=== PATIENT | female | born 1950 | race Caucasian/White ===

== ENCOUNTER 2017-09-07 14:13 | Outpatient (CLI) | payer MEDICARE ==
--- NOTE | 2017-09-07 15:53 | MRI ---
MRI OF THE RIGHT KNEE WIHTOUT CONTRAST: INDICATION: Right knee pain, concern for lateral meniscal tear after a fall in April of 2017. FINDINGS: Thee is a horizontally oriented tear involving the anterior horn, body, and posterior horn of the lat eral meniscus. There is a horizontally oriented oblique tear involving the body of the medial menisc us with a displaced flap seen projecting into the inferior medial gutter on image 16 of series 6. Th ere is a horizontally oriented tear component extending into posterior junction and posterior horn wi th associated parameniscal cyst seen adjacent to the posterior root on image 15 of series 7 measuring 3.2 x 0.8 cm. The MCL, ACL, PCL, and LCLC are intact. The extensor mechanism is intact. There is moderate to severe chondrosis involving the mediofemoral tibial and patellofemoral compartme nts with associated marginal osteophytes consistent with moderate to severe osteoarthrosis. There is a small semimembranous medial gastrocnemius popliteal cyst. The IT band and popliteus appear within normal limits. IMPRESSION: 1. Moderate to severe osteoarthrosis of the right knee. 2. Medial and lateral meniscal tears. There is a parameniscal cyst seen adjacent to the posterior r oot of the medial meniscus measuring 3.2 x 0.8 cm. POS: [facility]
== END 2017-09-07 14:14 | disposition home or self-care (01) ==
LOC: SCSMRI 14:13
PROVIDERS: ATTEND Orthopaedic Surgery
DX: M25.561 Pain in right knee (principal); M17.11 Unilateral primary osteoarthritis, right knee; S83.281A Other tear of lateral meniscus, current injury, right knee, initial encounter; S83.241A Other tear of medial meniscus, current injury, right knee, initial encounter; M25.861 Other specified joint disorders, right knee

== ENCOUNTER 2018-01-28 12:13 | Outpatient (CLI) | payer MEDICARE ==
[2018-01-28 13:55] LABS: Bilirubin Negative (Negative); Blood, Urine Negative (Negative); Clarity CLEAR (Clear); Glucose, Urine (Dipstick) Negative (Negative); Leukocyte Small (Negative); Nitrite Negative (Negative); Protein, Urine (Dipstick) Negative (Neg-Trace); Specific Gravity, Urine 1.006 (1.002-1.036); Urobilinogen 0.2 mg/dL (0.2-1.0); pH, Urine 7.5 (5.0-9.0)
[2018-01-28 14:03] LABS: Bacteria/HPF None Seen HPF (None Seen); Hyaline Casts/LPF 0-3 HYALINE CAST LPF (0-3 Hyaline); RBC/HPF 0-3 HPF (0-3); Squamous Epithelial None Seen HPF (0-3); WBC/HPF 0-3 HPF (0-3)
== END 2018-01-28 12:14 | disposition home or self-care (01) ==
LOC: LABBT 12:13
PROVIDERS: ATTEND Orthopaedic Surgery
DX: Z01.818 Encounter for other preprocedural examination (principal); M17.11 Unilateral primary osteoarthritis, right knee
CPT/HCPCS: 81001; 87081; 93005; 93010

== ENCOUNTER 2018-02-02 09:50 | Outpatient (CLI) | payer MEDICARE ==
[2018-02-02 10:56] LABS: #Basophils 0.1 thou/uL (0.0-0.2); #Eosinphils 0.1 thou/uL (0.0-0.7); #Lymphocytes 1.6 thou/uL (1.20-3.40); #Monocytes 0.4 thou/uL (0.11-0.59); #Neutrophils 3.7 thou/uL (1.40-6.50); %Basophils 1.6 % (0.0-1.0); %Eosinophils 1.5 % (0.0-10.0); %Lymphocytes 26.7 % (21.0-51.0); %Monocytes 7.4 % (0.0-10.0); %Neutrophils 62.9 % (42.0-75.0); Hemoglobin 13.2 g/dL (12.0-16.0); Mean Corpuscular HGB CONC 32.4 g/dL (32.0-36.0); Mean Corpuscular Hemoglobin 31.3 pg (27.0-31.0); Mean Corpuscular Volume 96.6 fL (78.0-98.0); Mean Platelet Volume 6.6 fL (7.4-10.4); Platelet Count 314 thou/uL (130-400); RBC Distribution Width 11.9 % (11.5-14.5); Red Blood Cell (RBC) Count 4.21 mill/uL (4.20-5.40); White Blood Cell (WBC) Count 5.9 thou/uL (4.8-10.8)
[2018-02-02 11:11] LABS: Prothrombin Time 13.5 SEC (12.0-14.7)
[2018-02-02 11:12] LABS: Anion Gap 11 mmol/L (10-20); BUN (Urea Nitrogen) 15 mg/dL (9.8-20.1); Calc. Creatinine Clearance 0 mL/min (70-130); Calcium 9.5 mg/dL (7.8-10.44); Carbon Dioxide 30 mmol/L (23-31); Chloride 103 mmol/L (98-107); Estimated GFR-MDRD 73; Glucose 62 mg/dL (80-115); Sodium 140 mmol/L (136-145)
== END 2018-02-02 09:51 | disposition home or self-care (01) ==
LOC: LABBT 09:50
PROVIDERS: ATTEND Orthopaedic Surgery
DX: Z01.812 Encounter for preprocedural laboratory examination (principal); M17.11 Unilateral primary osteoarthritis, right knee
CPT/HCPCS: 80048; 85025; 85610; 86850; 86900; 86901

== ENCOUNTER 2018-02-08 08:42 | Day surgery (SDC) | payer MEDICARE ==
[2018-01-28 12:31] VITALS: BMI 21.1
[2018-02-08] MEDS ORDERED: CEFAZOLIN 2 GM/50 ML BAG ONE (09:40)
[2018-02-08] MEDS ORDERED: Sodium Chloride 0.9% 100 ML ONE (09:40)
[2018-02-08] MEDS ORDERED: Tranexamic Acid 1,000 MG/10 ML VIAL ONE ×2 (09:40→14:57)
[2018-02-08] MEDS ORDERED: Fentanyl 100 MCG/2 ML VIAL ONE ×2 (11:06→14:57)
[2018-02-08] MEDS ORDERED: Midazolam HCl 2 mg/2 ml Vial ONE (11:06)
[2018-02-08] MEDS ORDERED: Lidocaine 1% (PF) 30 ML VIAL ONE (11:07)
[2018-02-08] MEDS ORDERED: traMADol HCl 50 MG TAB PO PRN ×5 (11:52→14:27)
[2018-02-08] MEDS ORDERED: Ondansetron PF 4 MG/2 ML Vial IVP PRN ×2 (11:52→12:36)
[2018-02-08] MEDS ORDERED: HYDROcodone/Acetaminophen 10/325 mg Tablet PO PRN ×4 (11:52→14:27)
[2018-02-08] MEDS ORDERED: Zolpidem Tartrate 5 MG TAB PO PRN ×3 (11:52→14:27)
[2018-02-08] MEDS ORDERED: Promethazine HCl 25 MG/ML VIAL IM PRN ×4 (11:52→14:27)
[2018-02-08] MEDS ORDERED: Fentanyl 100 MCG/2 ML VIAL IV PRN (11:53)
[2018-02-08] MEDS ORDERED: Ketorolac Tromethamine 30 MG/ML VIAL IVP SCH (12:00)
[2018-02-08] MEDS ORDERED: Ropivacaine 0.2% HCl/PF (40 MG/20 ML VIAL) ONE (12:16)
[2018-02-08] MEDS ORDERED: Ropivacaine 0.5% HCl/PF (150 MG/30 ML VIAL) ONE (12:16)
[2018-02-08] MEDS ORDERED: Acetaminophen 325 MG TAB PO PRN (12:36)
[2018-02-08] MEDS ORDERED: diphenhydrAMINE 25 MG CAP PO PRN (12:36)
[2018-02-08] MEDS ORDERED: Tranexamic Acid 1,000 MG in Sodium Chloride 0.9% 100 ML IVPB SCH (12:45)
[2018-02-08] MEDS ORDERED: Bupivacaine PF 0.5% 30 ML VIAL ONE (13:00)
[2018-02-08] MEDS ORDERED: Ondansetron PF 4 MG/2 ML Vial ONE (13:26)
[2018-02-08] MEDS ORDERED: PROPOFOL 200 MG/20 ML VIAL ONE (13:26)
[2018-02-08] MEDS ORDERED: Lidocaine 1% PF 5 ML VIAL ONE (13:26)
[2018-02-08] MEDS ORDERED: ePHEDrine/0.9% NaCl/PF SYRINGE 50 mg/10 ml ONE (13:26)
[2018-02-08] MEDS ORDERED: Ondansetron HCl/PF 4 MG/2 ML Vial IVP PRN (14:10)
[2018-02-08] MEDS ORDERED: Promethazine HCl 25 MG/ML VIAL SLOW IVP PRN (14:10)
[2018-02-08] MEDS ORDERED: Ropivacaine HCl/PF 250 ML in Premix Bag 1 BAG NERVE BLCK SCH (14:27)
[2018-02-08] MEDS ORDERED: Fentanyl 100 MCG/2 ML VIAL SLOW IVP PRN (14:31)
--- NOTE | 2018-02-08 15:26 | OP ---
DATE OF PROCEDURE: 02/08/2018 PREOPERATIVE DIAGNOSIS: Right knee osteoarthrosis. POSTOPERATIVE DIAGNOSIS: Right knee osteoarthrosis. PROCEDURE PERFORMED: Right total knee replacement using Pontis pinless navigation. SURGEON: Fortino Smith M.D. MINING ENGINEERING TECHNOLOGIST: Chavo Colby PA-C. BLOOD LOSS: Minimal. COMPLICATIONS: None. CONDITION: She did go to recovery room in stable condition. ANESTHESIA: She had a preoperative block as well as general anesthetic. IMPLANTS: To the right knee is Triathlon total knee system, the femur was size 5 cruciate retaining. We used a size 3 universal tibial baseplate, we used 3 x 9 mm CS X3 tibial bearing and a symmetric 27 x 8 X3 patella. DISPOSITION: She did go to recovery room in stable condition. INDICATIONS: This is an active 67-year-old female who has failed nonoperative treatment for knee art hritis and at this time wished to have her knee replaced. PROCEDURE IN DETAIL: After all appropriate consent forms were explained and signed, the patient was t aken back to the Operating Room and at this time was given general anesthetic. Once the level of anes thesia was appropriate, a well-padded tourniquet was placed on the right leg and the leg was then pre pped and draped in standard surgical fashion. The limb was exsanguinated and tourniquet taken up to 3 00 mmHg. Midline incision was made with a 10 blade down through the skin and subcutaneous tissue. Bov ie electrocautery was used to coagulate any brisk venous bleeding. A new blade was used to make a med ial parapatellar arthrotomy. Small subperiosteal release was performed medially and excess fat pad wa s removed. The knee was flexed up to gain access to the femur. The femur was navigated and distal fem oral resection was made. Epicondylar access was used to align our sizing jig and this was pinned in p lace. We sized our femur to be a size 5 cruciate retaining 4:1 cutting block was applied and pinned. Anterior and posterior chamfer cuts were then made. We navigated out our proximal tibia and made our proximal tibial resection. Spreaders were used to remove any posterior osteophytes off the back of th e femur as well as remaining meniscal tissue. A long alignment omer was then used to achieve correct r otation of our tibial baseplate and a size 3 universal tibial baseplate was chosen. This was pinned i n place. We trialed the polyethylene and a 3 x 9 mm CS X3 tibial bearing polyethylene gave us full ex tension and good stability throughout range of motion. Two towel clips and a saw were used to cut our patella. Three lug nuts were drilled and symmetric 27 x 8 X3 patella was trialed which sat nicely in the trochlear groove. We then drilled our femur and punched our tibia. All components were removed. The knee was thoroughly irrigated and dried. Cement was mixed into the cement gun on the back table. Components were then placed. The knee was held out in full extension until the cement had dried. All excess bone cement was removed. Multiple #2 Vicryl stitches as well as a Quill was used to close our extensor mechanism. 0 Quill followed by a running Monoderm was then used to close the skin. Surgicel glue was then used on the skin. Once this had dried, soft tissue dressing was applied to the limb, t ourniquet was let down, and the toes pinked up nicely. The patient was then awakened and taken to [facility] Recovery Room in stable condition. All counts were correct at the end of the case. The patient did receive preoperative IV antibiotics. The patient was injected with Exparel for postoperative pain re lief.
[2018-02-08] MEDS: Sodium Chloride 0.9% 1,000 ML IV SCH ×2 (16:21→23:12)
[2018-02-08] MEDS: Ketorolac Tromethamine 30 MG/ML VIAL IVP SCH ×2 (17:41→23:15)
[2018-02-08] MEDS: CEFAZOLIN 2 GM/50 ML BAG IVPB SCH (17:43)
[2018-02-08] MEDS: Senokot S 8.6-50 MG TAB PO SCH (20:16)
[2018-02-08] MEDS: Aspirin 81 mg Enteric Coated Tablet PO SCH (20:16)
[2018-02-08] MEDS: Amitriptyline HCl 25 MG TAB PO SCH (20:16)
[2018-02-08] MEDS: Ferrous Gluconate 324 MG TAB PO SCH (20:16)
[2018-02-08] MEDS ORDERED: Non-Formulary Item 1 EACH (Multivitamin [Daily Multiple Vitamin] 1 EACH) PO SCH (21:00)
[2018-02-08] MEDS: Ondansetron PF 4 MG/2 ML Vial IVP PRN (21:33)
[2018-02-08] MEDS ORDERED: Vancomycin HCl 1 GM in Premix Bag 1 BAG IVPB SCH (22:00)
[2018-02-09] MEDS: CEFAZOLIN 2 GM/50 ML BAG IVPB SCH (02:45)
[2018-02-09] MEDS: Ketorolac Tromethamine 30 MG/ML VIAL IVP SCH ×4 (05:44→23:43)
[2018-02-09 06:42] LABS: Hemoglobin 11.1 g/dL (12.0-16.0); Mean Corpuscular HGB CONC 33.3 g/dL (32.0-36.0); Mean Corpuscular Hemoglobin 31.9 pg (27.0-31.0); Mean Corpuscular Volume 95.8 fL (78.0-98.0); Mean Platelet Volume 6.9 fL (7.4-10.4); Platelet Count 262 thou/uL (130-400); RBC Distribution Width 11.8 % (11.5-14.5); Red Blood Cell (RBC) Count 3.47 mill/uL (4.20-5.40); White Blood Cell (WBC) Count 10.4 thou/uL (4.8-10.8)
[2018-02-09] MEDS: Ferrous Gluconate 324 MG TAB PO SCH ×2 (08:34→21:19)
[2018-02-09] MEDS: Fish Oil 1,000 MG CAP PO SCH (08:34)
[2018-02-09] MEDS: Aspirin 81 mg Enteric Coated Tablet PO SCH ×2 (08:34→21:18)
[2018-02-09] MEDS: Multivitamin W/ Minerals 1 TAB PO SCH (08:35)
[2018-02-09] MEDS: Senokot S 8.6-50 MG TAB PO SCH ×2 (08:35→21:18)
--- NOTE | 2018-02-09 08:44 | CON ---
DATE OF CONSULTATION: 02/09/2018 ATTENDING PHYSICIAN: Dr. Fortino Smith. REASON FOR CONSULTATION: Postop day #1, right total knee replacement. HISTORY OF PRESENT ILLNESS: This is a 68-year-old female patient who has failed outpatient therapy f or persistent knee pain. She is seeing Dr. Smith for follow up and has not had improvement as an outp atient and underwent total knee replacement yesterday. She has done well, has had no postoperative i ssues except for some nausea which is resolved. She has not started therapy until today, but has no complaints at this time. Knee pain is managed with anesthesia and analgesia. Denies chest pain, agustin rtness of breath or palpitations. PAST MEDICAL HISTORY: Hyperlipidemia, osteoarthritis, degenerative joint disease, history of migrain e. MEDICATIONS: Include amitriptyline 25 mg at bedtime, fish oil 1000 mg b.i.d., Caltrate D daily. ALLERGIES: None known. PAST SURGICAL HISTORY: Childbirth in 1981. SOCIAL HISTORY: She is . No smoking. Rare alcohol. No drugs. Retired teacher. Occasional coffee use. FAMILY HISTORY: Mother and father . REVIEW OF SYSTEMS: As per the history of present illness. Denies any recent fevers, chills or recen t illness. HEENT: Denies headache, visual or hearing changes. Cardiac: Denies chest pain, shortne ss of breath. Pulmonary: Denies cough or hemoptysis. Gastrointestinal: Some nausea, no vomiting o r diarrhea. Genitourinary: No history of dysuria or hematuria. Neurologic: No weakness, seizures, syncope. Musculoskeletal: Positive for right knee pain. PHYSICAL EXAMINATION: VITAL SIGNS: Temperature 98.6, pulse is 79, respirations 14, blood pressure 95/58, pulse ox 94%-96% on room air. GENERAL: She is awake and alert, in no acute distress. Speech is clear. HEENT: Mucosa is moist. NECK: Supple. HEART: Regular rate and rhythm. LUNGS: Clear bilaterally. ABDOMEN: Soft. EXTREMITIES: Right knee with dressing in place. Decreased range of motion. No edema bilaterally. LABORATORY DATA: White blood cell count 10,400, hemoglobin and hematocrit are 11.1 and 33.2, platele ts of 262. Preop labs were reviewed. ASSESSMENT AND PLAN: This is a 68-year-old female patient with a right knee arthritis status post ri ght total knee replacement, doing well. 1. Status post right knee replacement, postoperative care as per Orthopedics. 2. Hyperlipidemia. We will continue her medications. 3. Chronic sleep disturbance and migraine headache. We will continue amitriptyline for prevention. 4. Gastrointestinal protection. Her diet has been good. We will continue to monitor closely. 5. Deep venous thrombosis prophylaxis with her early ambulation as well as aspirin. We will continue to follow.
[2018-02-09] MEDS: Ondansetron PF 4 MG/2 ML Vial IVP PRN (09:22)
[2018-02-09] MEDS: Sodium Chloride 0.9% 1,000 ML IV SCH ×2 (13:09→18:18)
[2018-02-09] MEDS: Amitriptyline HCl 25 MG TAB PO SCH (21:18)
[2018-02-10] MEDS: Sodium Chloride 0.9% 1,000 ML IV SCH (05:05)
[2018-02-10 05:42] LABS: Hemoglobin 10.6 g/dL (12.0-16.0); Mean Corpuscular HGB CONC 33.5 g/dL (32.0-36.0); Mean Corpuscular Hemoglobin 32.4 pg (27.0-31.0); Mean Corpuscular Volume 96.8 fL (78.0-98.0); Mean Platelet Volume 7.1 fL (7.4-10.4); Platelet Count 231 thou/uL (130-400); RBC Distribution Width 11.8 % (11.5-14.5); Red Blood Cell (RBC) Count 3.28 mill/uL (4.20-5.40); White Blood Cell (WBC) Count 8.8 thou/uL (4.8-10.8)
[2018-02-10] MEDS: Ketorolac Tromethamine 30 MG/ML VIAL IVP SCH ×2 (05:57→12:17)
[2018-02-10] MEDS: Aspirin 81 mg Enteric Coated Tablet PO SCH (08:44)
[2018-02-10] MEDS: Senokot S 8.6-50 MG TAB PO SCH (08:44)
[2018-02-10] MEDS: Ferrous Gluconate 324 MG TAB PO SCH (08:44)
[2018-02-10] MEDS: Multivitamin W/ Minerals 1 TAB PO SCH (08:44)
[2018-02-10] MEDS: Fish Oil 1,000 MG CAP PO SCH (08:44)
[2018-02-10 12:10] VITALS: BP 122/69; TEMP 98.3
--- NOTE | 2018-02-10 12:21 | ULT ---
VENOUS DOPPLER ULTRASOUND OF THE RIGHT LOWER EXTREMITY: HISTORY: Right knee replacement, pain in the right lower leg. TECHNIQUE: Penn scale ultrasound with color flow and spectral Doppler imaging of the deep venous system of the r ight lower extremity was performed. FINDINGS: There is good flow, compression, and augmentation noted in the common femoral, femoral, popliteal, po sterior tibial, and greater saphenous veins of the right lower extremity. IMPRESSION: No evidence of deep vein thrombosis in the right lower extremity. POS: [facility]
== END 2018-02-10 14:05 | disposition home or self-care (01) ==
LOC: SDC 08:42 → SJJU 16:01 → SDC 02-10 14:05
PROVIDERS: ATTEND Orthopaedic Surgery
PROC: 0SRC0JZ Replacement of Right Knee Joint with Synthetic Substitute, Open Approach (ICD-10-PCS; principal; 2018-02-08)
DX: M17.11 Unilateral primary osteoarthritis, right knee (principal); E78.5 Hyperlipidemia, unspecified; G43.909 Migraine, unspecified, not intractable, without status migrainosus; Z79.899 Other long term (current) drug therapy
CPT/HCPCS: 27447; 85027; 93971; 96374 ×2; 97110; 97116 ×2; 97139 ×6; 97150; 97530 ×2; C1713; C1776; G8978; G8979; 36415; 96375; 96376; J1885; J2001; J2250; J2405; J2704; J2795; J3010; J3370; J7050; S0020